=== PATIENT | male | born 1935 | race Caucasian/White ===

== ENCOUNTER 2019-02-10 07:03 | Inpatient (IN) ==
[2019-02-10] MEDS ORDERED: 0.9 % Sodium Chloride 1,000 ML IVC ONE (07:07)
[2019-02-10] MEDS ORDERED: levoFLOXacin 750 MG/150 ML 750 MG/150 ML BAG IVPB ONE (07:07)
[2019-02-10] MEDS ORDERED: Acetaminophen 325 MG TABLET PO ONE (07:10)
[2019-02-10 07:25] LABS: Basophils % 0.2 %; Eosinophils % 0.3 %; Hematocrit 37.1 % (37.5-50.1); Hemoglobin 12.2 g/dL (12.9-16.9); Immature Granulocytes % 0.3 % (0-4); Lymphocytes # 1.2 K/mcL (0.6-4.6); Mean Corpuscular HGB Conc 32.9 g/dL (31.6-35.5); Mean Corpuscular Hemoglobin 27.9 pg (28.0-33.3); Mean Corpuscular Volume 84.9 fL (83.0-100.0); Mean Platelet Volume 9.2 fL (9.4-12.4); Monocytes # 0.8 K/mcL (0.0-1.3); Monocytes % 6.5 %; Neutrophils # 9.6 K/mcL (1.6-8.9); Platelet Count 278 K/mcL (140-400); Red Blood Count 4.37 M/mcL (4.19-5.50); Red Cell Distribution Width 13.7 % (11.5-14.5); Segmented Neutrophils % 82.7 %; White Blood Count 11.6 K/mcL (4.3-11.1)
[2019-02-10 07:26] LABS: INR 2.7
[2019-02-10 07:27] LABS: VBG HCO3 29 mEq/L (21-27); VBG PCO2 48 mmHg (41-51); VBG PO2 23 mmHg (25-50)
--- NOTE | 2019-02-10 07:28 | Emergency Department Note ---
Disposition Clinical Impression: Urinary tract infection Qualifiers: Urinary tract infection type: site unspecified Hematuria presence: without hematuria Qualified Code(s): N39.0 - Urinary tract infection, site not specified Altered mental status Qualifiers: Altered mental status type: unspecified Qualified Code(s): R41.82 - Altered mental status, unspecified Disposition: Transfer Short-Term Hosp Referrals: Jen Hurst MD [Primary Care Provider] - Time of Disposition: 08:58 Altered Mental Status HPI - General Stated Complaint: altered mental status Time Seen by Provider: 02/10/19 07:04 Source: EMS, other ([facility]) Mode of arrival: EMS Limitations: no limitations Nursing Notes Reviewed: Yes Vital Signs Reviewed: Yes - History of Present Illness HPI Narrative: Weakness confusion in the last 2-3 days. Apparently he has a history of urinary tract infections ECF indicated temperature was 99 so no antipyretics had been given. He had been more increasingly incontinent of urine complaint: altered mental status, confusion, other Onset (ago): unknown Timing confirmed by: caregiver Pain Severity: none Consistency of Symptoms: getting worse Context: history of similar presentation (UTIs and kidney stones), history psychiatric disease (Severe dementia) Associated symptoms: Reports: denies other symptoms - Related Data Home Medications Medication Instructions Recorded Confirmed Acetaminophen [Tylenol] 500 - 1,000 mg PO Q6H PRN 11/19/15 02/10/19 Mag Oxide/D3/Turmeric Rt Xt 1 each PO DAILY 05/17/18 02/10/19 [Magnesium-Vit D3-Turmeric Tab] Vitamin B Complex [B Complex] 1 each PO BID 05/17/18 02/10/19 Warfarin [Coumadin] 4 mg PO DAILY 05/17/18 02/10/19 Escitalopram Oxalate 10 mg PO DAILY 06/11/18 02/10/19 Cetirizine HCl [Zyrtec] 10 mg PO DAILY 12/07/18 02/10/19 HydrOXYzine SYP [Atarax] 10 mg PO BID 12/07/18 02/10/19 Allergies Allergy/AdvReac Type Severity Reaction Status Date / Time cephalexin [From Keflex] Allergy PT UNSURE Verified 02/10/19 07:12 All systems ED: reviewed and negative except as stated. Review of Systems: As Per HPI Past Medical History - Past Medical History PMFSH Narrative: [facility] notes indicate patient is a. Full code Medical history: Reports: dementia, osteoporosis, other Surgical history: Reports: other Psychiatric history: Reports: depression - Social History Smoking Status: Former smoker Smokeless Tobacco Status: No Alcohol use: Reports: none Drug use: Reports: none Physical Exam Constitutional: Patient is oriented to person, place, and time. Skin color is pink. Appears well hydrated, body habitus elderly and frail. Very confused to provide any history including responding to "what is your last name" . Non toxic appearing. Head: Normocephalic and atraumatic. External ear exam normal Nose: Nose normal. Mouth/Throat: Uvula is midline, oropharynx is clear and moist and mucous membranes are normal. Eyes: Conjunctivae nl, extraocular motions and lids are normal. Pupils are equal, round, and reactive to light. Neck: Normal range of motion and phonation normal. Neck supple. Cardiovascular: Rapid rate, regular rhythm, normal heart sounds. Pulmonary/Chest: No Respiratory distress. Respiratory Effort normal and breath sounds clear. Abdominal: Firm tense, bowel sounds are diminished Extremely distended tenderness, no masses, no guarding, no rebound Genitals: Penis is uncircumcised. Scrotum without discoloration or swelling. Testicles descended within the scrotal do not seem to be tender Musculoskeletal: Good distal pulses. Soft compartments. Brisk cap refill. Extremities: Normal range of motion.Intact peripheral pulses. No Edema. Extremity skin color nl, no calf tenderness or palpable cords. Neurological: Patient is confused but awake. Appears to be calm without agitation but verbal communication is limited to a few words and he is not oriented Patient is alert without evidence of obvious motor deficits Skin: Skin is warm, dry and intact. color is normal, cap refill is quick On the patient's bilateral buttocks and upper thighs he has pressure sores with just the beginnings of superficial breakdown. They are darkish discoloration. Psychiatric: Patient has flat affect. Patient speech is normal flow and content confused - General Limitations: no limitations General appearance: alert, in no apparent distress Course - Reevaluation(s) Reevaluation #1: Record review reveals previous staghorn calculi and positive urinary cultures with prevention and Proteus. The most recent culture on 02/04 showed the prevention but it was only sensitive to ertapenem and imipenem. These are not showing up as meds that we have here at this hospital. Time: 07:40 Reevaluation #2: Antibiotics and. Vital signs do not show signs of sepsis. Patient was discussed with Dr. Bui front desk lead for hospitalist here and he agrees to accept the patient. We discussed fluid management and antibiotics. And I have agreed to enter initial orders for the patient's hospitalization. Time: 08:25 Vital Signs Temperature 101.2 F H 02/10/19 07:04 Pulse Rate 98 02/10/19 07:04 Respiratory Rate 18 02/10/19 07:04 Blood Pressure 143/72 02/10/19 07:04 O2 Sat by Pulse Oximetry 94 02/10/19 07:04 Temperature 101.2 F H 02/10/19 07:04 Pulse Rate 88 02/10/19 08:09 Respiratory Rate 18 02/10/19 08:09 Blood Pressure 157/83 02/10/19 08:09 O2 Sat by Pulse Oximetry 96 02/10/19 08:09 Oxygen Delivery Oxygen Delivery Nasal Cannula Altered Mental Status - Differential Diagnosis Likely: altered mental status, sepsis - Medical Records Medical records reviewed: Yes I reviewed the patient's medical records. Patient had KUB on 02/04 which showed a staghorn calculi bilaterally He had had surgery for right ureteral stone in June. And a past medical history of non-STEMI, severe dementia and urosepsis. He is on Coumadin - Lab Data Lab results reviewed: Yes I reviewed the patient's lab results. Result diagrams: 02/10/19 06:56 02/10/19 06:56 Lab Results 02/10/19 02/10/19 02/10/19 Range/Units 06:56 06:56 06:56 WBC 11.6 H (4.3-11.1) K/mcL RBC 4.37 (4.19-5.50) M/mcL Hgb 12.2 L (12.9-16.9) g/dL Hct 37.1 L (37.5-50.1) % MCV 84.9 (83.0-100.0) fL MCH 27.9 L (28.0-33.3) pg MCHC 32.9 (31.6-35.5) g/dL RDW 13.7 (11.5-14.5) % Plt Count 278 (140-400) K/mcL MPV 9.2 L (9.4-12.4) fL Immature Gran % 0.3 (0-4) % Seg Neutrophils % 82.7 % Lymphocytes % 10.0 % Monocytes % 6.5 % Eosinophils % 0.3 % Basophils % 0.2 % Neutrophils # 9.6 H (1.6-8.9) K/mcL Lymphocytes # 1.2 (0.6-4.6) K/mcL Monocytes # 0.8 (0.0-1.3) K/mcL Eosinophils # 0.0 (0.0-0.6) K/mcL Basophils # 0.0 (0.0-0.2) K/mcL PT 31.0 H (9.4-12.1) Seconds INR 2.7 VBG pH (7.32-7.42) pH Units VBG pCO2 (41-51) mmHg VBG pO2 (25-50) mmHg VBG HCO3 (21-27) mEq/L Sodium 135 L (136-145) mEq/L Potassium 3.9 (3.5-5.1) mEq/L Chloride 100 (98-107) mEq/L Carbon Dioxide 27 (23-29) mEq/L BUN 18 (8-23) mg/dL Creatinine 1.10 (0.70-1.30) mg/dL Est GFR ( Amer) > 60 (> 60) Est GFR (Non-Af Amer) > 60 (> 60) BUN/Creatinine Ratio 16 (6-26) Glucose 112 H (70-105) mg/dL Calculated Osmolality 283 (280-300) Lactic Acid (0.5-2.2) mmol/L Calcium 8.9 (8.6-10.3) mg/dL Total Bilirubin 0.8 (0.3-1.0) mg/dL Direct Bilirubin 0.1 (0.0-0.2) mg/dL Indirect Bilirubin 0.7 (0.0-1.2) mg/dL AST 14 (13-39) Units/L ALT 12 (7-52) Units/L Alkaline Phosphatase 65 (34-104) Units/L Troponin I < 0.03 (< 0.04) ng/mL Serum Total Protein 7.5 (6.4-8.9) g/dL Albumin 3.7 (3.5-5.7) g/dL Globulin 3.8 H (2.4-3.5) g/dL Albumin/Globulin Ratio 1.0 L (1.1-2.2) Urine Color (Yellow) Urine Clarity (Clear) Urine pH (5.0-8.0) pH Units Ur Specific [place] (1.010-1.025) Urine Protein (Neg-Trace) mg/dL Urine Glucose (UA) (Normal) mg/dL Urine Ketones (Negative) mg/dL Urine Blood (Negative) Urine Nitrite (Negative) Urine Bilirubin (Negative) Urine Urobilinogen (Normal) mg/dL Ur Leukocyte Esterase (Negative) Urine Microscopic RBC (0-3) per hpf Urine Microscopic WBC (0-3) per hpf Urine Bacteria (None-Few) per hpf Ur Culture Indicated? (NO) 02/10/19 02/10/19 02/10/19 Range/Units 06:56 07:23 07:39 WBC (4.3-11.1) K/mcL RBC (4.19-5.50) M/mcL Hgb (12.9-16.9) g/dL Hct (37.5-50.1) % MCV (83.0-100.0) fL MCH (28.0-33.3) pg MCHC (31.6-35.5) g/dL RDW (11.5-14.5) % Plt Count (140-400) K/mcL MPV (9.4-12.4) fL Immature Gran % (0-4) % Seg Neutrophils % % Lymphocytes % % Monocytes % % Eosinophils % % Basophils % % Neutrophils # (1.6-8.9) K/mcL Lymphocytes # (0.6-4.6) K/mcL Monocytes # (0.0-1.3) K/mcL Eosinophils # (0.0-0.6) K/mcL Basophils # (0.0-0.2) K/mcL PT (9.4-12.1) Seconds INR VBG pH 7.40 (7.32-7.42) pH Units VBG pCO2 48 (41-51) mmHg VBG pO2 23 L (25-50) mmHg VBG HCO3 29 H (21-27) mEq/L Sodium (136-145) mEq/L Potassium (3.5-5.1) mEq/L Chloride (98-107) mEq/L Carbon Dioxide (23-29) mEq/L BUN (8-23) mg/dL Creatinine (0.70-1.30) mg/dL Est GFR ( Amer) (> 60) Est GFR (Non-Af Amer) (> 60) BUN/Creatinine Ratio (6-26) Glucose (70-105) mg/dL Calculated Osmolality (280-300) Lactic Acid 2.2 (0.5-2.2) mmol/L Calcium (8.6-10.3) mg/dL Total Bilirubin (0.3-1.0) mg/dL Direct Bilirubin (0.0-0.2) mg/dL Indirect Bilirubin (0.0-1.2) mg/dL AST (13-39) Units/L ALT (7-52) Units/L Alkaline Phosphatase (34-104) Units/L Troponin I (< 0.04) ng/mL Serum Total Protein (6.4-8.9) g/dL Albumin (3.5-5.7) g/dL Globulin (2.4-3.5) g/dL Albumin/Globulin Ratio (1.1-2.2) Urine Color Yellow (Yellow) Urine Clarity Clear (Clear) Urine pH 7.0 (5.0-8.0) pH Units Ur Specific [place] 1.020 (1.010-1.025) Urine Protein 30 H (Neg-Trace) mg/dL Urine Glucose (UA) Normal (Normal) mg/dL Urine Ketones Negative (Negative) mg/dL Urine Blood Moderate H (Negative) Urine Nitrite Positive A (Negative) Urine Bilirubin Negative (Negative) Urine Urobilinogen Normal (Normal) mg/dL Ur Leukocyte Esterase Small H (Negative) Urine Microscopic RBC 30-50 H (0-3) per hpf Urine Microscopic WBC TNTC H (0-3) per hpf Urine Bacteria Moderate H (None-Few) per hpf Ur Culture Indicated? YES A (NO) - Radiology Data Radiology results reviewed: Yes I reviewed the patient's radiology results. - EKG Data EKG attestation: Yes I reviewed and interpreted this EKG. EKG results narrative: Sinus rhythm, rate of 101, no evidence of atrial fib or other acute irregularity. No ST-T wave changes. TPA Checklist - LKW: 3-4.5 hrs Add. Warnings/Precautions Patient/family understanding: The patient/family members have been counseled and understood the risk, benefit, and alternatives of treatment.
[2019-02-10 07:36] LABS: Alanine Aminotransferase 12 Units/L (7-52); Albumin 3.7 g/dL (3.5-5.7); Alkaline Phosphatase 65 Units/L (34-104); Aspartate Amino Transferase 14 Units/L (13-39); BUN/Creatinine Ratio 16 (6-26); Bilirubin,Direct 0.1 mg/dL (0.0-0.2); Bilirubin,Indirect 0.7 mg/dL (0.0-1.2); Bilirubin,Total 0.8 mg/dL (0.3-1.0); Blood Urea Nitrogen 18 mg/dL (8-23); Calcium 8.9 mg/dL (8.6-10.3); Carbon Dioxide 27 mEq/L (23-29); Chloride 100 mEq/L (98-107); Globulin 3.8 g/dL (2.4-3.5); Glucose 112 mg/dL (70-105); Osmolality,Calculated 283 (280-300); Potassium 3.9 mEq/L (3.5-5.1); Sodium 135 mEq/L (136-145); Total Protein 7.5 g/dL (6.4-8.9); eGFR For African Americans > 60 (> 60); eGFR For Non-African Americans > 60 (> 60)
[2019-02-10 07:37] LABS: Troponin I < 0.03 ng/mL (< 0.04)
[2019-02-10] MEDS ORDERED: Meropenem 1,000 MG in 0.9 % Sodium Chloride Mini Bag 100 ML IVPB ONE (07:43)
[2019-02-10] MEDS ORDERED: Gentamicin 80 MG in 0.9 % Sodium Chloride 100 ML IVPB ONE ×4 (07:44→14:00)
[2019-02-10] MEDS ORDERED: 0.9 % Sodium Chloride 1,000 ML IVC SCH ×2 (07:45→11:25)
[2019-02-10 08:11] LABS: Bilirubin,Urine Negative (Negative); Blood,Urine Moderate (Negative); Clarity,Urine Clear (Clear); Color,Urine Yellow (Yellow); Glucose,Urine (UA) Normal (Normal); Ketones,Urine Negative (Negative); Leukocyte Esterase,Urine Small (Negative); Nitrite,Urine Positive (Negative); Protein,Urine 30 mg/dL (Neg-Trace); Urobilinogen,Urine Normal (Normal)
[2019-02-10 08:14] LABS: Bacteria,Urine Moderate per hpf (None-Few); RBC,Urine 30-50 per hpf (0-3); WBC,Urine TNTC per hpf (0-3)
[2019-02-10] MEDS ORDERED: Ondansetron 4 MG/2 ML VIAL ONE (10:45)
[2019-02-10] MEDS ORDERED: Naloxone 0.4 MG/ML INJ IVP PRN ×2 (11:25→11:34)
[2019-02-10] MEDS ORDERED: Ibuprofen 400 MG TABLET PO PRN (11:28)
[2019-02-10] MEDS ORDERED: Ondansetron 4 MG/2 ML VIAL IVP PRN (11:29)
--- NOTE | 2019-02-10 13:34 | Internal Med History&Physical ---
Date of Encounter: 02/10/19 Time of Encounter: 13:53 Assessment and Plan (1) Complicated UTI (urinary tract infection) Current visit: No Status: Acute Patient presents from prison facility with several days of increasing confusion and fever. Initial labs show urinalysis that is grossly positive. Patient was recently treated for a UTI on 02/04 with the culture results that time showing a multiresistant bacteria, which was sensitive to gentamicin. Patient will continue on gentamicin at this time. Patient was febrile at time of admission at 102 orally. Vital signs has remained stable. (2) Nausea Current visit: Yes Status: Acute Patient was nauseated and vomited a large amount of wild-type emesis after arrival to unit. Patient was treated with Zofran and at this time appears relaxed. Patient unable to relate whether he is nauseated due to his limited verbal response and his advanced dementia. Abdomen appears slightly distended and firm, but KUB was obtained which shows no blockage or acute process. We will continue to monitor closely. Will start patient on PPI. (3) DVT (deep venous thrombosis) Current visit: Yes Status: Acute Patient currently on Coumadin and per medical records has had a history of DVT. At this time no signs of active DVT present, but will continue patient on his Coumadin. Currently his INR is therapeutic. Qualifiers: DVT location: lower extremity Affected thrombotic vein of extremity: unspecified vein of extremity Chronicity: unspecified Laterality: unspecified laterality Qualified Code(s): I82.409 - Acute embolism and thrombosis of unspecified deep veins of unspecified lower extremity (4) Dementia Current visit: Yes Status: Chronic Issue with a history of advanced dementia and currently resides in a prison facility. Patient is oriented to name but unable to answer complex questions. Patient currently having difficulty following any commands. Patient with a history of dementia with behavior issues per medical records from nursing facility. We will continue to monitor closely Qualifiers: Dementia type: unspecified type Dementia behavioral disturbance: without behavioral disturbance Qualified Code(s): F03.90 - Unspecified dementia without behavioral disturbance Internal Medicine - H&P: HPI Chief complaint: UTI Admitted From: Long-term Nursing Facility Plans for Post Hospital Care: Transfer Intermediate Facility History of present illness: Mr. Gonzales is a 83 year old male, who presented to emergency department from a prison facility with reports of increased confusion over the past several days and an elevated temperature. Patient with advanced dementia and is a very poor historian. Patient currently with minimal verbal response. Patient's next of kin was notified of his current status and was unable to provide any medical background. Patient's medical history is being obtained from current medical records available. Records were reviewed and reveals previous diagnosis of staghorn calculi and positive urinary cultures on 02/04, which showed the Providencia and Proteus. Cultures showed it was only sensitive to ertapenem and imipenem at that time. Patient had KUB on 02/04 which showed a staghorn calculi bilaterally. Records show he had surgery for right ureteral stone in June 2018. He also has a past medical history of non-STEMI, severe dementia and urosepsis. He is on Coumadin for Hx of DVT. 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 Medical records from his nursing facility states that patient has had a history of dementia with behavior disturbance and also has a history of dysphagia. Patient was admitted to the medical floor for further treatment with IV gentamicin. Initial labs show a urinalysis that shows grossly positive. Patient's WBC count is 11.6. Upon arrival patient remains very drowsy but able to answer simple questions with one to 2 word answers. Patient unable to follow any commands. Patient noted to be nauseated upon arrival and had vomited a moderate amount of bile-type emesis. Patient appeared to have difficulty clearing his airway and required oral suctioning. Remained in no apparent pulmonary distress. Abdomen appeared distended and firm with bowel sounds heard in all quadrants. Vital signs had remained stable, except for a fever of 102 orally. No hypoxia. Past Med Surg Social Fam HX - Past Medical History Source: old records reviewed Medical history: DVT, dementia, myocardial infarction, osteoporosis, other Additional medical history: REPEATED FALLS, ABNORMAL GAIT. SEPSIS. RT KNEE CONTRACTURE. RHABDOMYOLYSIS. MUSCLE WEAKNESS. PATHOLOGICAL FRACTURE. DEHYDRATION Psychiatric history: depression - Past Surgical History Surgical History: hip replacement, other Additional surgical history: right hip hemiarthroplasty - Social History Smoking Status: Former smoker Smokeless Tobacco Status: No Alcohol use: none Drug use: none - Family History Mother Living Status: Father Living Status: Internal Medicine - H&P: Meds Acetaminophen [Tylenol] 500 - 1,000 mg PO Q6H PRN 05/15/16 [History] Mag Oxide/D3/Turmeric Rt Xt [Magnesium-Vit D3-Turmeric Tab] 1 each PO DAILY 05/17/18 [History] Vitamin B Complex [B Complex] 1 each PO BID 05/17/18 [History] Warfarin [Coumadin] 4 mg PO DAILY 05/17/18 [History] Escitalopram Oxalate 10 mg PO DAILY 06/11/18 [History] Cetirizine HCl [Zyrtec] 10 mg PO DAILY 12/07/18 [History] HydrOXYzine SYP [Atarax] 10 mg PO BID 12/07/18 [History] Allergy/AdvReac Type Severity Reaction Status Date / Time cephalexin [From Keflex] Allergy PT UNSURE Verified 02/10/19 07:12 All Systems PM: A 10-system review of systems was performed and is negative for pertinent findings except as documented above in the HPI. - Constitutional Constitutional: as per HPI, no chills, no fever(s), no night sweats - EENT Eyes: as per HPI, no change in vision, no discharge, no pain, no photophobia Ears: as per HPI, no ear discharge, no ear pain, no tinnitus Nose, mouth and throat: as per HPI, no dysphagia, no nasal discharge, no neck pain, no sore throat - Breasts Breasts: as per HPI - Cardiovascular Cardiovascular ROS IM: as per HPI, no chest pain, no diaphoresis, no dyspnea, no lightheadedness, no palpitations, no syncope - Respiratory Respiratory: as per HPI, no cough, no dyspnea, no wheezing, no excessive phlegm production - Gastrointestinal Gastrointestinal: as per HPI, no abdominal pain, no diarrhea, no hematemesis, no hematochezia, no melena, no nausea, no vomiting - Genitourinary Genitourinary ROS male: as per HPI - Musculoskeletal Musculoskeletal ROS IM: as per HPI, no numbness, no tingling - Integumentary Integumentary IM: as per HPI, no rash, no unusual bruising - Neurological Neurological ROS: as per HPI, no confusion, no convulsions, no focal weakness, no numbness, no tingling, no tremor(s) - Psychiatric Psychiatric: as per HPI - Hematologic/Lymphatic Hematologic/Lymphatic: no easy bruising - Constitutional Vitals: Temp Pulse Resp BP Pulse Ox 101.2 F H 97 18 134/71 95 02/10/19 07:04 02/10/19 09:10 02/10/19 09:55 02/10/19 09:55 02/10/19 09:10 General appearance: Present: A&O X 1 Exam: Patient is somewhat drowsy but appears oriented to name. Patient has been reluctant to answer questions, but has answered simple questions with one to 2 word answers. Patient unable to follow any commands. Patient with history of advanced dementia. - Head Head exam: Present: atraumatic, normocephalic - Eye Eye exam: Present: PERRL, conjuntiva pink, sclera anicteric Pupils: Present: PERRL - Neck Neck exam general surgery: Present: supple, trachea midline. Absent: lymphadenopathy - Respiratory Respiratory exam: Present: decreased breath sounds, CTAB. Absent: accessory muscle use, rales, rhonchi, wheezes - Cardiovascular Cardiovascular exam: Present: RRR, +S1, +S2. Absent: diastolic murmur, gallop, rubs, systolic murmur - GI/Abdominal GI/Abdominal exam: Present: distended, normal bowel sounds, soft, no peritoneal signs. Absent: tenderness Additional comments: Patient is vomiting a fall-type emesis. Abdomen appears slightly distended and firm. Bowel sounds heard in all quadrants - Extremities Exam Extremities exam: Present: warm, radial pulses palpable and symmetrical. Absent: calf tenderness, cyanotic, pedal edema - Neurological Exam Neurological exam: Present: CN II-XII intact, no focal deficits. Absent: pronater drift, facial droop, speech deficit Additional comments: Patient is oriented 1 to name. History of advanced dementia. Neurological exam is limited due to patient's poor cooperation. No focal deficits noted on exam - Skin Skin exam: Present: dry, intact Internal Med - H&P Results - Labs CBC & Chem 7: 02/10/19 06:56 02/10/19 06:56 Labs: Short CBC 02/10/19 Range/Units 06:56 WBC 11.6 H (4.3-11.1) K/mcL Hgb 12.2 L (12.9-16.9) g/dL Hct 37.1 L (37.5-50.1) % Plt Count 278 (140-400) K/mcL Neutrophils # 9.6 H (1.6-8.9) K/mcL BMP 02/10/19 06:56 Sodium 135 L Potassium 3.9 Chloride 100 Carbon Dioxide 27 BUN 18 Creatinine 1.10 Glucose 112 H Calcium 8.9 Cardiac Enzymes 02/10/19 Range/Units 06:56 Troponin I < 0.03 (< 0.04) ng/mL Liver Function 02/10/19 Range/Units 06:56 Total Bilirubin 0.8 (0.3-1.0) mg/dL Direct Bilirubin 0.1 (0.0-0.2) mg/dL AST 14 (13-39) Units/L ALT 12 (7-52) Units/L Alkaline Phosphatase 65 (34-104) Units/L Albumin 3.7 (3.5-5.7) g/dL Urine 02/10/19 Range/Units 07:39 Urine Color Yellow (Yellow) Urine Clarity Clear (Clear) Urine pH 7.0 (5.0-8.0) pH Units Ur Specific [place] 1.020 (1.010-1.025) Urine Protein 30 H (Neg-Trace) mg/dL Urine Glucose (UA) Normal (Normal) mg/dL - ABG Interpretation ABG results: 02/10/19 07:23 VBG pH 7.40 VBG pCO2 48 VBG pO2 23 L VBG HCO3 29 H - Impressions ITS Impressions Chest X-Ray 02/10/19 07:08 IMPRESSION: Hypoaeration with bibasilar atelectasis. D/ / 02/10/2019 08:26:50 Naseem Nielsen MD / leonardo Interpreting Provider: Naseem Nielsen MD Head CT 02/10/19 07:10 IMPRESSION: No acute intracranial abnormality. Stable symmetric dilation of the lateral ventricles which is somewhat out of proportion to the level of atrophy can be seen with normal pressure hydrocephalus. Correlate clinically. D/ / Corey Herrera / Corey Herrera Interpreting Provider: Corey Herrera X-Ray 02/10/19 11:27 IMPRESSION: Chest: Stable chest. Mild pulmonary edema. Abdomen: Nonspecific, but nonobstructive bowel gas pattern. Bilateral staghorn calculi present. D/ / Meng Simon MD / Meng Simon MD Interpreting Provider: Meng Simon MD Chest X-Ray 02/10/19 11:32 IMPRESSION: Chest: Stable chest. Mild pulmonary edema. Abdomen: Nonspecific, but nonobstructive bowel gas pattern. Bilateral staghorn calculi present. D/ / Meng Simon MD / Meng Simon MD Interpreting Provider: Meng Simon MD - VTE Reasons for not Prescribing Prophylaxis: Not indicated-Anticoagulated or INR therapeutic
[2019-02-10] MEDS: Famotidine 20 MG/2 ML VIAL IVP SCH (16:35)
[2019-02-10] MEDS: 0.9 % Sodium Chloride 1,000 ML IVC SCH (16:58)
[2019-02-10] MEDS: *HR* Warfarin 4 MG TABLET PO SCH ×2 (16:59→19:58)
[2019-02-10] MEDS ORDERED: Acetaminophen 650 MG RECTAL SUPP RC PRN (19:27)
[2019-02-10] MEDS: Meropenem 1,000 MG in Water for inj. (sterile) 10 ML IVP SCH (21:22)
[2019-02-11 02:16] LABS: Acinetobacter baumannii by PCR Not Detected (Not Detect); Candida albicans by PCR Not Detected (Not Detect); Candida glabrata by PCR Not Detected (Not Detect); Candida krusei by PCR Not Detected (Not Detect); Candida parapsilosis by PCR Not Detected (Not Detect); Candida tropicalis by PCR Not Detected (Not Detect); Enterobacter cloacae Cmplx PCR Not Detected (Not Detect); Enterococcus by PCR Not Detected (Not Detect); Escherichia coli by PCR Not Detected (Not Detect); Klebsiella oxytoca by PCR Not Detected (Not Detect); Klebsiella pneumoniae by PCR Not Detected (Not Detect); Proteus by PCR DETECTED (Not Detect); Pseudomonas aeruginosa by PCR Not Detected (Not Detect); Serratia marcescens by PCR Not Detected (Not Detect); Staphylococcus aureus by PCR Not Detected (Not Detect); Staphylococcus by PCR Not Detected (Not Detect); Streptococcus agalactiae(B)PCR Not Detected (Not Detect); Streptococcus by PCR Not Detected (Not Detect); Streptococcus pneumoniae PCR Not Detected (Not Detect); Streptococcus pyogenes (A) PCR Not Detected (Not Detect); blaKPC Carbapenem-Resist Gene Not Detected (Not Detect); mecA Methicillin-Resist Gene Not Detected (Not Detect); vanA/B Vancomycin-Resist Genes Not Detected (Not Detect)
[2019-02-11] MEDS: Famotidine 20 MG/2 ML VIAL IVP SCH ×2 (05:48→16:35)
[2019-02-11 06:48] LABS: Basophils % 0.2 %; Eosinophils % 0.1 %; Hemoglobin 10.7 g/dL (12.9-16.9); Immature Granulocytes % 0.2 % (0-4); Lymphocytes % 10.1 %; Mean Corpuscular HGB Conc 32.4 g/dL (31.6-35.5); Mean Corpuscular Hemoglobin 27.9 pg (28.0-33.3); Mean Corpuscular Volume 86.2 fL (83.0-100.0); Mean Platelet Volume 9.3 fL (9.4-12.4); Monocytes # 0.8 K/mcL (0.0-1.3); Monocytes % 7.9 %; Neutrophils # 8.1 K/mcL (1.6-8.9); Platelet Count 215 K/mcL (140-400); Red Blood Count 3.83 M/mcL (4.19-5.50); Red Cell Distribution Width 14.3 % (11.5-14.5); Segmented Neutrophils % 81.5 %
[2019-02-11 07:02] LABS: INR 2.2; Prothrombin Time 24.9 Seconds (9.4-12.1)
[2019-02-11 07:13] LABS: BUN/Creatinine Ratio 19 (6-26); Blood Urea Nitrogen 21 mg/dL (8-23); Calcium 8.3 mg/dL (8.6-10.3); Carbon Dioxide 28 mEq/L (23-29); Chloride 103 mEq/L (98-107); Glucose 104 mg/dL (70-105); Osmolality,Calculated 287 (280-300); Sodium 137 mEq/L (136-145); eGFR For African Americans > 60 (> 60); eGFR For Non-African Americans > 60 (> 60)
[2019-02-11] MEDS: Meropenem 1,000 MG in Water for inj. (sterile) 10 ML IVP SCH (09:23)
[2019-02-11] MEDS: Gentamicin 60 MG in 0.9 % Sodium Chloride 100 ML IVPB SCH ×2 (10:21→20:01)
--- NOTE | 2019-02-11 12:08 | Internal Med Progress Note ---
Date of Encounter: 02/11/19 Time of Encounter: 12:06 - Assessment and plan (1) Complicated UTI (urinary tract infection) Current Visit: Yes Status: Acute Assessment and plan: Patient was admitted with a UTI. Patient continues on antibiotics at this time. Nathan catheter in place with clear yellow urine received. Patient continues to be febrile with his most recent temperature at 99.7. We will signs have remained stable. (2) DVT (deep venous thrombosis) Current Visit: Yes Status: Acute Assessment and plan: Patient with a history of DVT and continues on prophylactic anticoagulation at this time. Qualifiers: DVT location: lower extremity Affected thrombotic vein of extremity: unspecified vein of extremity Chronicity: unspecified Laterality: unspecified laterality Qualified Code(s): I82.409 - Acute embolism and thrombosis of unspecified deep veins of unspecified lower extremity (3) Dementia Current Visit: Yes Status: Chronic Assessment and plan: Patient with a history of dementia. No behavior issues reported per nursing. Patient's been cooperative during exam. Oriented 1, but able to answer simple questions appropriately. Qualifiers: Dementia type: unspecified type Dementia behavioral disturbance: without behavioral disturbance Qualified Code(s): F03.90 - Unspecified dementia without behavioral disturbance - Time Spent With Patient less than 15 minutes - Subjective Interval history: Patient appears more alert today and has been very pleasant during exam. Patient continues with moderate confusion due to his history of dementia. Patient believes that I am a family member has been very happy to see me. Patient denies any discomforts or shortness of breath. Nursing has no reports of behavior issues overnight. Patient with history of dysphagia, but nursing states that he has been eating his meals without difficulty. Nursing does report patient had a elevated fever last evening of 99.7 - Constitutional Vitals: Temp Pulse Resp BP Pulse Ox 98.3 F 79 16 127/64 98 02/11/19 12:01 02/11/19 12:01 02/11/19 12:01 02/11/19 12:01 02/11/19 12:01 General appearance: Present: A&O X 1 Exam: Patient is oriented to name only. Patient has been confused to assess where he is or why he is here. He is able to answer simple questions appropriately but becomes very confused with any complex questioning. Patient is able to follow commands. - Head Head exam: Present: atraumatic, normocephalic - Eye Eye exam: Present: PERRL, conjuntiva pink, sclera anicteric Pupils: Present: PERRL - Neck Neck exam general surgery: Present: supple, trachea midline. Absent: l ymphadenopathy - Respiratory Respiratory exam: Present: decreased breath sounds, CTAB. Absent: accessory muscle use, rales, rhonchi, wheezes - Cardiovascular Cardiovascular exam: Present: RRR, +S1, +S2. Absent: diastolic murmur, gallop, rubs, systolic murmur - GI/Abdominal GI/Abdominal exam: Present: distended, normal bowel sounds, soft, no peritoneal signs. Absent: tenderness Additional comments: Abdomen remains moderately distended but recent KUB showed no acute issues. Bowel sounds heard in all quads. - Additional comments: nathan cath in place with clear yellow u/o rec'd - Extremities Exam Extremities exam: Present: warm, radial pulses palpable and symmetrical. Absent: calf tenderness, cyanotic, pedal edema - Neurological Exam Neurological exam: Present: CN II-XII intact, oriented X3, no focal deficits. Absent: pronater drift, facial droop, speech deficit - Skin Skin exam: Present: dry, intact Internal Medicine: Result - Labs CBC & Chem 7: 02/11/19 06:25 02/11/19 06:25 Labs: Short CBC 02/11/19 Range/Units 06:25 WBC 10.0 (4.3-11.1) K/mcL Hgb 10.7 L D (12.9-16.9) g/dL Hct 33.0 L (37.5-50.1) % Plt Count 215 (140-400) K/mcL Neutrophils # 8.1 (1.6-8.9) K/mcL BMP 02/11/19 06:25 Sodium 137 Potassium 4.0 Chloride 103 Carbon Dioxide 28 BUN 21 Creatinine 1.11 Glucose 104 Calcium 8.3 L - ABG Interpretation ABG results: PT/INR, D-dimer PT 24.9 Seconds (9.4-12.1) H 02/11/19 06:25 - Impressions Impressions KUB X-Ray 02/10/19 11:27 IMPRESSION: Chest: Stable chest. Mild pulmonary edema. Abdomen: Nonspecific, but nonobstructive bowel gas pattern. Bilateral staghorn calculi present. D/ / Meng Simon MD / Meng Simon MD Interpreting Provider: Meng Simon MD Chest X-Ray 02/10/19 11:32 IMPRESSION: Chest: Stable chest. Mild pulmonary edema. Abdomen: Nonspecific, but nonobstructive bowel gas pattern. Bilateral staghorn calculi present. D/ / Meng Simon MD / Meng Simon MD Interpreting Provider: Meng Simon MD - VTE Reasons for not Prescribing Prophylaxis: Not indicated-Anticoagulated or INR therapeutic Consult Discharge Plan - Plan Referrals: Jen Hurst MD [Primary Care Provider] -
[2019-02-11] MEDS: 0.9 % Sodium Chloride 1,000 ML IVC SCH ×2 (15:33→23:19)
[2019-02-11] MEDS: Ertapenem 1,000 MG in 0.9 % Sodium Chloride Mini Bag 100 ML IVPB SCH (16:37)
[2019-02-11] MEDS ORDERED: *HR* Warfarin 2 MG TABLET PO SCH (18:00)
[2019-02-11] MEDS: Acetaminophen 325 MG TABLET PO PRN (19:55)
[2019-02-12] MEDS: Famotidine 20 MG/2 ML VIAL IVP SCH ×2 (05:26→17:00)
[2019-02-12 05:59] LABS: INR 1.8; Prothrombin Time 20.9 Seconds (9.4-12.1)
[2019-02-12] MEDS: 0.9 % Sodium Chloride 1,000 ML IVC SCH (06:36)
[2019-02-12] MEDS: Acetaminophen 325 MG TABLET PO PRN (08:45)
[2019-02-12] MEDS: Gentamicin 60 MG in 0.9 % Sodium Chloride 100 ML IVPB SCH ×2 (08:46→21:06)
[2019-02-12 08:50] LABS: Basophils % 0.3 %; Eosinophils # 0.1 K/mcL (0.0-0.6); Eosinophils % 0.7 %; Hematocrit 31.5 % (37.5-50.1); Hemoglobin 10.2 g/dL (12.9-16.9); Immature Granulocytes % 0.4 % (0-4); Lymphocytes # 1.5 K/mcL (0.6-4.6); Lymphocytes % 20.6 %; Mean Corpuscular HGB Conc 32.4 g/dL (31.6-35.5); Mean Corpuscular Hemoglobin 27.8 pg (28.0-33.3); Mean Corpuscular Volume 85.8 fL (83.0-100.0); Mean Platelet Volume 9.5 fL (9.4-12.4); Monocytes # 0.8 K/mcL (0.0-1.3); Monocytes % 11.3 %; Neutrophils # 4.8 K/mcL (1.6-8.9); Platelet Count 197 K/mcL (140-400); Red Blood Count 3.67 M/mcL (4.19-5.50); Red Cell Distribution Width 14.1 % (11.5-14.5); Segmented Neutrophils % 66.7 %; White Blood Count 7.2 K/mcL (4.3-11.1)
[2019-02-12 09:46] LABS: BUN/Creatinine Ratio 19 (6-26); Blood Urea Nitrogen 16 mg/dL (8-23); Calcium 8.6 mg/dL (8.6-10.3); Carbon Dioxide 25 mEq/L (23-29); Chloride 102 mEq/L (98-107); Glucose 100 mg/dL (70-105); Osmolality,Calculated 279 (280-300); Potassium 3.9 mEq/L (3.5-5.1); Sodium 134 mEq/L (136-145); eGFR For African Americans > 60 (> 60); eGFR For Non-African Americans > 60 (> 60)
[2019-02-12] MEDS: Ertapenem 1,000 MG in 0.9 % Sodium Chloride Mini Bag 100 ML IVPB SCH (10:51)
--- NOTE | 2019-02-12 12:05 | Internal Med Progress Note ---
Date of Encounter: 02/12/19 Time of Encounter: 12:03 - Assessment and plan (1) Complicated UTI (urinary tract infection) Current Visit: Yes Status: Acute Assessment and plan: Patient was admitted with a UTI. Patient continues on antibiotics at this time. Mcneil catheter in place with clear yellow urine received. He has remained afebrile overnight. We will signs have remained stable. (2) DVT (deep venous thrombosis) Current Visit: Yes Status: Acute Assessment and plan: Patient with a history of DVT and continues on prophylactic anticoagulation at this time. Qualifiers: DVT location: lower extremity Affected thrombotic vein of extremity: unspecified vein of extremity Chronicity: unspecified Laterality: unspecifie d laterality Qualified Code(s): I82.409 - Acute embolism and thrombosis of unspecified deep veins of unspecified lower extremity (3) Dementia Current Visit: Yes Status: Chronic Assessment and plan: Patient with a history of dementia. No behavior issues reported per nursing. Patient's been cooperative during exam. Oriented 1, but able to answer simple questions appropriately. Qualifiers: Dementia type: unspecified type Dementia behavioral disturbance: without behavioral disturbance Qualified Code(s): F03.90 - Unspecified dementia without behavioral disturbance (4) Gram negative sepsis Current Visit: No Status: Acute Assessment and plan: Patient's blood cultures do show positive with Proteus. No sensitivity have been received. Patient currently on appropriate antibiotics due to a history of Proteus in his urine. He has been afebrile over past 24 hours. We will continue with current plan of care and await sensitivity results - Time Spent With Patient less than 15 minutes - Subjective Interval history: Patient appears more alert today and has been very pleasant during exam. Patient continues with moderate confusion due to his history of dementia. Patient denies any discomforts or shortness of breath. Nursing has no reports of behavior issues overnight. - Constitutional Vitals: Temp Pulse Resp BP Pulse Ox 98.6 F 71 16 120/65 92 02/12/19 11:29 02/12/19 11:29 02/12/19 11:29 02/12/19 11:29 02/12/19 11:29 General appearance: Present: A&O X 1 Exam: Patient remains pleasantly confused and oriented to name only. Answer simple questions appropriately but becomes very confused with any complex questioning. - Head Head exam: Present: atraumatic, normocephalic - Eye Eye exam: Present: PERRL, conjuntiva pink, sclera anicteric Pupils: Present: PERRL - Neck Neck exam general surgery: Present: supple, trachea midline. Absent: lymphadenopathy - Respiratory Respiratory exam: Present: decreased breath sounds, CTAB. Absent: accessory muscle use, rales, rhonchi, wheezes - Cardiovascular Cardiovascular exam: Present: RRR, +S1, +S2. Absent: diastolic murmur, gallop, rubs, systolic murmur - GI/Abdominal GI/Abdominal exam: Present: normal bowel sounds, soft, no peritoneal signs. Absent: distended, tenderness Additional comments: Abdomen appears slightly distended and soft with no tenderness. - Additional comments: Mcneil catheter in place with clear yellow urine received. - Extremities Exam Extremities exam: Present: warm, radial pulses palpable and symmetrical. Absent: calf tenderness, cyanotic, pedal edema - Neurological Exam Neurological exam: Present: CN II-XII intact, oriented X3, no focal deficits. Absent: pronater drift, facial droop, speech deficit - Skin Skin exam: Present: dry, intact Internal Medicine: Result - Labs CBC & Chem 7: 02/12/19 08:33 02/12/19 08:33 Labs: Short CBC 02/12/19 Range/Units 08:33 WBC 7.2 (4.3-11.1) K/mcL Hgb 10.2 L (12.9-16.9) g/dL Hct 31.5 L (37.5-50.1) % Plt Count 197 (140-400) K/mcL Neutrophils # 4.8 (1.6-8.9) K/mcL BMP 02/12/19 08:33 Sodium 134 L Potassium 3.9 Chloride 102 Carbon Dioxide 25 BUN 16 Creatinine 0.84 Glucose 100 Calcium 8.6 - ABG Interpretation ABG results: PT/INR, D-dimer PT 20.9 Seconds (9.4-12.1) H 02/12/19 05:28 - Impressions Impressions Chest X-Ray 02/10/19 07:08 IMPRESSION: Hypoaeration with bibasilar atelectasis. D/ / 02/10/2019 08:26:50 Naseem Nielsen MD / leonardo Interpreting Provider: Naseem Nielsen MD - VTE Reasons for not Prescribing Prophylaxis: Not indicated-Anticoagulated or INR therapeutic Consult Discharge Plan - Plan Referrals: Jen Hurst MD [Primary Care Provider] -
--- NOTE | 2019-02-12 12:31 | Discharge Summary ---
<Caden Nicholas Christine - Last Filed: 02/12/19 12:27> Orders not resulted at time of discharge: Pending orders 02/10/19 07:47 Culture,Blood [] Stat Date of Encounter: 02/12/19 Time of Encounter: 12:27 - Discharge Diagnosis (1) Complicated UTI (urinary tract infection) Priority: Primary Status: Acute Comments: Patient with a recent history of complicated UTI in the previous weeks prior to this admission and had returned to the emergency department with a toxic appearance after several days of declining LOC and increased confusion at the [facility]. Patient was treated with IV antibiotics during his stay and his LOC and confusion had improved. Patient has remained afebrile over the past 48 hours. Patient had a Mcneil catheter was in place but currently has been removed and has been able to void with no issues. Patient's IV antibiotics were converted to oral antibiotics after sensitivity has been received. Patient will be discharged on current medication as to follow-up with his primary care provider for further management (2) DVT (deep venous thrombosis) Priority: Secondary Status: Acute Comments: Patient was a history of DVT and was kept on prophylactic anticoagulation during his stay. No acute issues during his stay of facility. Patient will be discharged to [facility] with further management per PCP Qualifiers: DVT location: lower extremity Affected thrombotic vein of extremity: unspecified vein of extremity Chronicity: unspecified Laterality: unspecified laterality Qualified Code(s): I82.409 - Acute embolism and thrombosis of unspecified deep veins of unspecified lower extremity (3) Dementia Priority: Secondary Status: Chronic Comments: No acute issues during his stay. Patient's LOC and confusion had improved soon after starting on antibiotics. Patient currently is pleasantly confused with no behavior issues during stay. Patient is to continue follow-up with his PCP at [facility]. Qualifiers: Dementia type: unspecified type Dementia behavioral disturbance: without behavioral disturbance Qualified Code(s): F03.90 - Unspecified dementia without behavioral disturbance (4) Gram negative sepsis Priority: Secondary Status: Acute Comments: Patient's blood culture showed positive for Proteus. Patient has been on antibiotics for a UTI showing Proteus. Patient will continue on oral antibiotics per sensitivity. No vascular issues noted during his stay with his vital signs remaining stable. Hospital course: Mr. Gonzales is a 83 year old male, who presented to emergency department from a nursing home facility with reports of increased confusion over the past several days and an elevated temperature. Patient with advanced dementia and is a very poor historian. Patient currently with minimal verbal response. Patient's next of kin was notified of his current status and was unable to provide any medical background. Patient's medical history is being obtained from current medical records available. Records were reviewed and reveals previous diagnosis of staghorn calculi and positive urinary cultures on 02/04, which showed the Providencia and Proteus. Cultures showed it was only sensitive to ertapenem and imipenem at that time. Patient had KUB on 02/04 which showed a staghorn calculi bilaterally. Records show he had surgery for right ureteral stone in June 2018. He also has a past medical history of non-STEMI, severe dementia and urosepsis. He is on Coumadin for Hx of DVT. 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 Medical records from his nursing facility states that patient has had a history of dementia with behavior disturbance and also has a history of dysphagia. Patient was admitted to the medical floor for further treatment with IV antibiotics. Initial labs show a urinalysis that shows grossly positive. Patient's WBC count is 11.6. Upon arrival patient was very drowsy, but over the course of the next 24 hours patient's LOC had improved and currently he remains alert. Patient remains pleasantly confused, began oriented to name only. Patient has been cooperative with care with no behavior issues reported per nursing. Patient's abdomen rate has remained slightly distended but remains soft and nontender. Patient had a KUB that was obtained during this stay which showed no acute process. Patient had a Mcneil catheter in place with clear yellow urine received, but currently is voiding without difficulty. Discharge discussed with: patient Time spent discussing smoking cessation with patient: 3 to 10 minutes - Time Spent with Patient Total time spent providing and/or coordinating discharge services: Time spent: Less than 30 minutes - Discharge Medications Prescriptions: No Action Escitalopram Oxalate 10 mg PO DAILY Acetaminophen [Tylenol] 500 - 1,000 mg PO Q6H PRN PRN Reason: Pain Vitamin B Complex [B Complex] 1 each PO BID Mag Oxide/D3/Turmeric Rt Xt [Magnesium-Vit D3-Turmeric Tab] 1 each PO DAILY Warfarin [Coumadin] 4 mg PO DAILY HydrOXYzine SYP [Atarax] 10 mg PO BID Cetirizine HCl [Zyrtec] 10 mg PO DAILY Home Medications: Acetaminophen [Tylenol] 500 - 1,000 mg PO Q6H PRN 11/19/15 [History] Mag Oxide/D3/Turmeric Rt Xt [Magnesium-Vit D3-Turmeric Tab] 1 each PO DAILY 05/17/18 [History] Vitamin B Complex [B Complex] 1 each PO BID 05/17/18 [History] Warfarin [Coumadin] 4 mg PO DAILY 05/17/18 [History] Escitalopram Oxalate 10 mg PO DAILY 06/11/18 [History] Cetirizine HCl [Zyrtec] 10 mg PO DAILY 12/07/18 [History] HydrOXYzine SYP [Atarax] 10 mg PO BID 12/07/18 [History] Allergies/Adverse Reactions: Allergy/AdvReac Type Severity Reaction Status Date / Time cephalexin [From Keflex] Allergy PT UNSURE Verified 02/10/19 07:12 Date of admission: 02/10/19 09:13 Primary care physician: Jen Hurst Discharging clinician: Wilbert Ceron - Constitutional Vitals: Temp Pulse Resp BP Pulse Ox 98.6 F 71 16 120/65 92 02/12/19 11:29 02/12/19 11:29 02/12/19 11:29 02/12/19 11:29 02/12/19 11:29 General appearance: Present: A&O X 1 - Patient Status Disposition: Transfer SNF Condition: Good Functional capacity at discharge: uses cane/walker Overall status at discharge: patient is progressing back to baseline - Discharge Instructions Follow Up With: Jen Hurst MD [Primary Care Provider] - Forms: ED Satisfaction Letter - Diet and Activity Activity: as per physical therapy, increase activity as tolerated Diet: diabetic diet, low fat, low cholesterol, low salt diet - VTE Reasons for not Prescribing Prophylaxis: Not indicated-Anticoagulated or INR therapeutic <Wilbert Ceron - Last Filed: 02/13/19 11:26> - NOTES TO OUTPATIENT PROVIDER Notes to Outpatient Provider: Proteus and providentia are multiply resistant organisms. Therefore, we will recommend a week of IV ertapenem and then reculture a week later. Would suppress with antibiotic(s) because of his history of multiple UTIs and renal calculi. Orders not resulted at time of discharge: Pending orders 02/10/19 07:47 Culture,Blood [BC] Stat Date of Encounter: 02/13/19 Time of Encounter: 11:19 - Discharge Diagnosis (1) Urinary tract infection Priority: Primary Status: Acute Qualifiers: Urinary tract infection type: site unspecified Hematuria presence: without hematuria Qualified Code(s): N39.0 - Urinary tract infection, site not specified (2) Dementia Priority: Secondary Status: Chronic Qualifiers: Dementia type: unspecified type Dementia behavioral disturbance: without behavioral disturbance Qualified Code(s): F03.90 - Unspecified dementia without behavioral disturbance (3) Gram negative sepsis Priority: Secondary Status: Acute Hospital course: See note from Caden Nicholas CNP. We waited on his blood cultures which showed a different organism. Both are sensitive to ertapenem. We will recommend treatment with one week of 1000 mg of daily ertapenem. He will return to the ECF for care as planned. We will ask that ECF provider follows and will need repeat culture after antibiotics completed. Suppressive oral antibiotics might be indicated but these are multiply resistant organisms. - Time Spent with Patient Total time spent providing and/or coordinating discharge services: Date of admission: 02/10/19 09:13 Primary care physician: Jen Hurst Anticipated date of discharge: 02/13/19 - Constitutional Vitals: Temp Pulse Resp BP Pulse Ox 98.8 F 93 32 145/66 92 02/13/19 07:40 02/13/19 07:40 02/13/19 07:40 02/13/19 07:40 02/13/19 07:40 Exam: See exam this date. Patient oriented 1 only, pleasantly confused, in no apparent distress.
[2019-02-12] MEDS ORDERED: Aminoglycoside Consult 1 EACH MC ONE (15:09)
[2019-02-12] MEDS: Ascorbic Acid 500 MG TABLET PO SCH (17:00)
[2019-02-12] MEDS ORDERED: *HR* Warfarin 4 MG TABLET PO SCH (18:00)
[2019-02-13] MEDS: Famotidine 20 MG/2 ML VIAL IVP SCH (05:22)
[2019-02-13 05:25] LABS: Prothrombin Time 22.5 Seconds (9.4-12.1)
[2019-02-13 07:41] VITALS: BP 145/66
[2019-02-13] MEDS ORDERED: Gentamicin 100 MG in 0.9 % Sodium Chloride 100 ML IVPB SCH (09:00)
[2019-02-13] MEDS: Ascorbic Acid 500 MG TABLET PO SCH (09:27)
[2019-02-13] MEDS: Ertapenem 1,000 MG in 0.9 % Sodium Chloride Mini Bag 100 ML IVPB SCH (10:40)
--- NOTE | 2019-02-13 10:54 | Internal Med Progress Note ---
Date of Encounter: 02/13/19 Time of Encounter: 09:45 - Assessment and plan (1) Urinary tract infection Current Visit: Yes Status: Acute Assessment and plan: We are still waiting on blood culture sensitivities and ID of the gram-negative ronda. After this is verified, he should be able to return to [facility]. Qualifiers: Urinary tract infection type: site unspecified Hematuria presence: without hematuria Qualified Code(s): N39.0 - Urinary tract infection, site not specified (2) Dementia Current Visit: Yes Status: Chronic Assessment and plan: This is apparently stable and the patient is pleasantly disoriented. However, his niece was unaware of this diagnosis. Qualifiers: Dementia type: unspecified type Dementia behavioral disturbance: without behavioral disturbance Qualified Code(s): F03.90 - Unspecified dementia without behavioral disturbance (3) Gram negative sepsis Current Visit: No Status: Acute Assessment and plan: Again, culture results are pending. Antibiotic decision will be made pending that. - Subjective Interval history: Patient remains pleasantly confused. He denies problems. I am unable to verify validity of ROS. He is oriented 1. - Constitutional Vitals: Temp Pulse Resp BP Pulse Ox 98.8 F 93 32 145/66 92 02/13/19 07:40 02/13/19 07:40 02/13/19 07:40 02/13/19 07:40 02/13/19 07:40 Exam: Examination: (Except as mentioned above): General: In no apparent distress. Alert and oriented 3. Nondiaphoretic. Head: Atraumatic and normocephalic. Respiratory: No use of accessory muscles. Lungs are clear throughout. Normal airflow. Cardiovascular: Regular rate and rhythm without murmur appreciated. Abdomen: Bowel sounds are normal. No hepatosplenomegaly mass or tenderness appreciated. Abdomen seems more distended but he is without tenderness, mass, etc. Obese and therefore difficult to palpate deeply. Extremities: No cyanosis clubbing or edema. Skin: Warm and non-diaphoretic with no new lesions noted. Internal Medicine: Result - Labs CBC & Chem 7: 02/12/19 08:33 02/12/19 08:33 - ABG Interpretation ABG results: PT/INR, D-dimer PT 22.5 Seconds (9.4-12.1) H 02/13/19 05:10 - VTE Reasons for not Prescribing Prophylaxis: Not indicated-Anticoagulated or INR therapeutic Consult Discharge Plan - Plan Referrals: Jen Hurst MD [Primary Care Provider] -
--- NOTE | 2019-02-13 11:39 | Physician Discharge Referral ---
[facility] Referral Info Transfer To: ECF Provider in Charge: ECF provider. Institutional Level of Care: Skilled - Diagnosis (1) Urinary tract infection Priority: Primary Status: Acute (2) Dementia Priority: Secondary Status: Chronic (3) Gram negative sepsis Priority: Secondary Status: Acute - Transfer Medications Home Medications: Acetaminophen [Tylenol] 500 - 1,000 mg PO Q6H PRN 11/19/15 [History] Mag Oxide/D3/Turmeric Rt Xt [Magnesium-Vit D3-Turmeric Tab] 1 each PO DAILY 05/17/18 [History] Vitamin B Complex [B Complex] 1 each PO BID 05/17/18 [History] Warfarin [Coumadin] 4 mg PO DAILY 05/17/18 [History] Escitalopram Oxalate 10 mg PO DAILY 06/11/18 [History] Cetirizine HCl [Zyrtec] 10 mg PO DAILY 12/07/18 [History] HydrOXYzine SYP [Atarax] 10 mg PO BID 12/07/18 [History] Ascorbic Acid [Vitamin C] 500 mg PO BIDWM tablet 02/13/19 [Rx] Ertapenem [INVanz] 1,000 mg IVPB DAILY vial 02/13/19 [Rx] Allergies/Adverse Reactions: Allergy/AdvReac Type Severity Reaction Status Date / Time cephalexin [From Keflex] Allergy PT UNSURE Verified 02/10/19 07:12 - Respiratory Orders Smoking Cessation: Smoking cessation has been advised. For more information, call the [place] Tobacco Quit Line at 4-932-WZMT-NOW. - Advance Directives Code Status: Full Code - Rehabiliation Orders Rehab Potential: Poor - Diet Orders Mechanical Soft CERTIFICATION: I certify that the transfer of the above named patient to an [facility] is necessary for the continuing treatment of the diagnosis listed. The above information is true and accurate reflection of patient's current condition. Confidential - Redisclosure prohibited without a patient's written consent.
== END 2019-02-13 15:10 | DRG 872 ==
LOC: EMEROOGRE 07:03 → INPGRE 09:13

== ENCOUNTER 2021-02-25 06:25 | Inpatient (IN) ==
[2021-02-25] MEDS ORDERED: 0.9 % Sodium Chloride 1,000 ML IVC ONE (06:32)
[2021-02-25] MEDS ORDERED: Acetaminophen 650 MG RECTAL SUPP RC ONE (06:46)
[2021-02-25] MEDS ORDERED: levoFLOXacin 750 MG/150 ML 750 MG/150 ML BAG IVPB ONE (06:46)
[2021-02-25 07:01] LABS: Basophils % 0.1 %; Hematocrit 40.2 % (37.5-50.1); Hemoglobin 13.5 g/dL (12.9-16.9); Immature Granulocytes % 0.5 % (0-4); Lymphocytes # 0.9 K/mcL (0.6-4.6); Lymphocytes % 9.4 %; Mean Corpuscular HGB Conc 33.6 g/dL (31.6-35.5); Mean Corpuscular Hemoglobin 29.9 pg (28.0-33.3); Mean Corpuscular Volume 89.1 fL (83.0-100.0); Mean Platelet Volume 9.8 fL (9.4-12.4); Monocytes # 1.1 K/mcL (0.0-1.3); Monocytes % 10.7 %; Platelet Count 219 K/mcL (140-400); Red Blood Count 4.51 M/mcL (4.19-5.50); Red Cell Distribution Width 13.5 % (11.5-14.5); Segmented Neutrophils % 79.3 %
[2021-02-25 07:05] LABS: INR 1.3; Prothrombin Time 14.6 Seconds (9.4-12.1)
[2021-02-25] MEDS ORDERED: 0.9 % Sodium Chloride 500 ML IVC ONE (07:13)
[2021-02-25 07:15] LABS: Alanine Aminotransferase 70 Units/L (7-52); Albumin 3.5 g/dL (3.5-5.7); Albumin/Globulin Ratio 0.9 (1.1-2.2); Alkaline Phosphatase 77 Units/L (34-104); Aspartate Amino Transferase 147 Units/L (13-39); BUN/Creatinine Ratio 24 (6-26); Bilirubin,Direct 0.2 mg/dL (0.0-0.2); Bilirubin,Indirect 0.5 mg/dL (0.0-1.0); Bilirubin,Total 0.7 mg/dL (0.3-1.0); Blood Urea Nitrogen 30 mg/dL (8-23); Calcium 8.6 mg/dL (8.6-10.3); Carbon Dioxide 27 mEq/L (23-29); Chloride 104 mEq/L (98-107); Ethanol < 10 mg/dL (Less than 10); Globulin 3.9 g/dL (2.4-3.5); Glucose 132 mg/dL (70-105); Osmolality,Calculated 304 (280-300); Potassium 3.3 mEq/L (3.5-5.1); Sodium 143 mEq/L (136-145); Total Protein 7.4 g/dL (6.4-8.9); eGFR For African Americans > 60 (> 60); eGFR For Non-African Americans 56 (> 60)
[2021-02-25] MEDS ORDERED: 0.9 % Sodium Chloride 1,000 ML IVC SCH (07:15)
[2021-02-25 07:33] LABS: Troponin I 0.14 ng/mL (< 0.04)
[2021-02-25 07:50] LABS: VBG HCO3 24 mEq/L (21-27); VBG PCO2 33 mmHg (41-51); VBG PH 7.47 pH Units (7.32-7.42); VBG PO2 77 mmHg (25-50)
[2021-02-25] MEDS ORDERED: Acetaminophen 650 MG RECTAL SUPP RC PRN (11:24)
[2021-02-25] MEDS ORDERED: Heparin 25,000UNIT/250ML 1/2NS 25,000 UNIT/250 ML IV.SOLN IVC SCH (16:15)
[2021-02-25 16:42] LABS: Hematocrit 37.9 % (37.5-50.1); Hemoglobin 12.4 g/dL (12.9-16.9); Mean Corpuscular HGB Conc 32.7 g/dL (31.6-35.5); Mean Corpuscular Hemoglobin 29.3 pg (28.0-33.3); Mean Corpuscular Volume 89.6 fL (83.0-100.0); Mean Platelet Volume 9.6 fL (9.4-12.4); Platelet Count 191 K/mcL (140-400); Red Blood Count 4.23 M/mcL (4.19-5.50); Red Cell Distribution Width 13.6 % (11.5-14.5); White Blood Count 11.5 K/mcL (4.3-11.1)
[2021-02-25 16:49] LABS: INR 1.3; Prothrombin Time 15.3 Seconds (9.4-12.1)
[2021-02-25 16:51] LABS: Activated Partial Thrombo Time 33.7 Seconds (26.0-36.0)
[2021-02-25] MEDS ORDERED: Ascorbic Acid 500 MG TABLET PO SCH (17:00)
[2021-02-25 17:13] LABS: Heparin anti-factor XA UFH < 0.04 IU/mL (0.30-0.70)
[2021-02-25 18:48] VITALS: BP 131/69; PULSE 80; RESP 19; TEMP 98.2; O2SAT 98
[2021-02-25] MEDS ORDERED: traZODone 50 MG TABLET PO SCH (21:00)
[2021-02-25] MEDS ORDERED: Melatonin 3 MG TABLET PO SCH (21:00)
[2021-02-26] MEDS ORDERED: *HR* Enoxaparin 40 MG/0.4 ML SYRINGE SQ SCH (06:00)
[2021-02-26] MEDS ORDERED: levoFLOXacin 750 MG/150 ML 750 MG/150 ML BAG IVPB SCH (09:00)
[2021-02-26] MEDS ORDERED: Cyanocobalamin (B-12) 1,000 MCG TABLET PO SCH (09:00)
[2021-02-26] MEDS ORDERED: Magnesium Oxide 400 MG TABLET PO SCH (09:00)
== END 2021-02-25 18:45 | disposition short-term general hospital (02) | DRG 177 ==
LOC: EMEROOGRE 06:25 → INPGRE 09:19
PROVIDERS: ADMIT Family Medicine; ATTEND Family Medicine